=== PATIENT | male | born 1960 | race Caucasian/White ===

== ENCOUNTER 2022-05-15 09:56 | Emergency (ER) | payer OTHER ==
[~2022-05-15] VITALS: Ht 175.3 cm; Wt 95.0 kg
[2022-05-15] MEDS ORDERED: GLIPIZIDE ER5 MG PO (10:44)
[2022-05-15] MEDS ORDERED: LISINOPRIL10 MG PO (10:45)
[2022-05-15] MEDS ORDERED: METFORMIN500 M2 PO (10:45)
[2022-05-15 12:45] VITALS: BP 1160/90
== END 2022-05-15 12:50 | disposition home or self-care (01) | DRG 563 ==
LOC: ED 09:56
DX: S82.124A Nondisplaced fracture of lateral condyle of right tibia, initial encounter for closed fracture (principal); I10 Essential (primary) hypertension; E11.9 Type 2 diabetes mellitus without complications; Z79.84 Long term (current) use of oral hypoglycemic drugs; W18.30XA Fall on same level, unspecified, initial encounter; Y93.67 Activity, basketball; Y92.149 Unspecified place in prison as the place of occurrence of the external cause
CPT/HCPCS: L1830